=== PATIENT | male | born 1980 | race Native Hawaiian/Other Pacific Islander ===

== ENCOUNTER 2018-02-09 04:35 | Emergency (ER) | payer OTHER ==
[~2018-02-09] VITALS: Ht 193 cm; Wt 124.7 kg
[2018-02-09 04:30] VITALS: TEMP 98.3
[2018-02-09 05:40] LABS: PLATELET COUNT 210 K/uL (142-355)
[2018-02-09 05:45] LABS: POTASSIUM 3.2 mmol/L (3.6-5.2)
[2018-02-09 06:38] VITALS: BP 139/88
== END 2018-02-09 06:41 | disposition home or self-care (01) ==
LOC: ED 04:35
PROVIDERS: Internal Medicine
DX: E87.6 Hypokalemia (principal); R07.89 Other chest pain; R53.1 Weakness; R00.1 Bradycardia, unspecified
CPT/HCPCS: 36415; 80053; 81000; 82553; 84484; 85027; 93005; 99284

== ENCOUNTER 2021-01-06 14:12 | Outpatient (CLI) | payer BC | END 2021-01-06 19:55 | disposition home or self-care (01) | LOC: RAD 14:12 | PROVIDERS: ATTEND Family Medicine | DX: K21.9 Gastro-esophageal reflux disease without esophagitis (principal); E66.9 Obesity, unspecified; M54.9 Dorsalgia, unspecified | CPT/HCPCS: 93005 ==